=== PATIENT | male | born 1975 | race Caucasian/White ===

== ENCOUNTER 2019-06-15 17:52 | Inpatient (IN) | payer OTHER ==
[~2019-06-15] VITALS: Ht 170.2 cm; Wt 73.5 kg
--- NOTE | 2019-06-15 18:42 | NUR ---
PACIENTE ALERTA,ACTIVO Y ORIENTADO.REFIERE DOLOR ABDOMINOPELVICO DESDE EL MEDIO JANEE.
--- NOTE | 2019-06-15 19:45 | NUR ---
SE ORIENTA PTE SOBRE TRATAMEINTO.SE RADHA MUESTRAS DE DENISE Y SE CANALIZA PERIFERALMENTE. SE ADMINISTRAN MEDICAMENTOS ORDENADOS. SE PROVEE CONTRASTE ORAL Y SE ORIENTA SOBRE LA AMY DEL MISMO. PTE PENDIENTE A RESULTADOS DE LAB Y CT.
--- NOTE | 2019-06-16 07:50 | NUR ---
SE RECIBE PTE DEL TURNO ANTERIOR, ELRTA Y ORIENTADA X 3 EFSERAS, EN CAMA NIVEL MAS BAJO, CARDOZA DE IDENTIFICACION Y BARANDAS ELEVADAS POR PRECAUCION. SE OBSERVA CON BUEN PATRON RESPIRATORIO Y PIEL TIBIA AL TACTO. H/L PATENTE Y ALANNA DE EDEMA O ERITEMA. PTE PENDIENTE A CONSULTA CON DR CASTELLANOS. SE MANTIENE BAJO OBSERVACION.
== END 2019-06-19 12:03 | disposition home or self-care (01) | DRG 392 ==
LOC: ER 17:52 → SEC-K 06-16 11:02 → MEDJ 06-16 11:02
PROVIDERS: ADMIT Internal Medicine
DX: K57.32 Diverticulitis of large intestine without perforation or abscess without bleeding (principal)